=== PATIENT | male | born 1930 | race Caucasian/White ===

== ENCOUNTER 2018-01-17 06:54 | Inpatient (IN) | payer MEDICARE, OTHER ==
[2018-01-17] MEDS: SOD CHLORIDE 0.9% 100 ML, TRANEXAMIC ACID 3,000 MG IRR (06:00)
[2018-01-17] MEDS: TRANEXAMIC ACID 1,000 MG in DEXTROSE 5% 100 ML IVPB (06:00)
[2018-01-17] MEDS: CEFAZOLIN 2 GM/50 ML (PMX) 50 ML IVPB (06:00)
[~2018-01-17 06:54] MED LIST: BUPIVACAINE 0.5% (SDV) 30 ML, morphine SULFATE (PF) 8 MG, EPINEPHrine 0.3 MG, KETOROLAC... IRR
[2018-01-17] MEDS: GABAPENTIN 300 MG CAP PO ×2 (08:07→20:57)
[2018-01-17] MEDS: DEXAMETHASONE 1 MG TAB PO (08:07)
[2018-01-17] MEDS ORDERED: THROMBIN 5000 UNIT VIAL (09:12)
[2018-01-17] MEDS ORDERED: CA CHLORIDE 10% 10 ML SYRINGE (09:12)
[2018-01-17] MEDS ORDERED: CEFAZOLIN 1 GM INJ (09:20)
[2018-01-17] MEDS ORDERED: PROPOFOL 20 ML (09:20)
[2018-01-17] MEDS ORDERED: LIDOCAINE 2% (SDV) 5 ML INJ (09:20)
[2018-01-17] MEDS ORDERED: ONDANSETRON 4 MG INJ (09:21)
[2018-01-17] MEDS ORDERED: BUPIVACAINE 0.75%/DEXT (SPINAL) 2 ML INJ (09:21)
[2018-01-17] MEDS ORDERED: morphine SULFATE/PF (10 MG/10 ML) INJ (09:21)
[2018-01-17] MEDS ORDERED: NALOXONE (0.4 MG/ML) INJ IV (10:30)
[2018-01-17] MEDS ORDERED: ONDANSETRON 4 MG INJ IV ×2 (10:30→11:30)
[2018-01-17] MEDS ORDERED: HYDROmorphONE 0.5 MG/0.5 ML SYG IV ×2 (10:30)
[2018-01-17] MEDS ORDERED: DIPHENHYDRAMINE 50 MG INJ IV (10:30)
[2018-01-17] MEDS: POLYMYXIN/BACITRACIN 1L IRRIG (10:38)
[2018-01-17] MEDS ORDERED: EPHEDrine SULFATE 50 MG/5 ML SYG (10:59)
[2018-01-17] MEDS ORDERED: ACETAMINOPHEN 500 MG TAB PO (11:30)
[2018-01-17] MEDS ORDERED: MAGNESIUM HYDROXIDE 30ML CUP PO (11:30)
[2018-01-17] MEDS ORDERED: morphine 2 MG INJ IV ×2 (11:30)
[2018-01-17] MEDS ORDERED: ZOLPIDEM 5 MG TAB PO (11:30)
[2018-01-17 11:53] LABS: ADD MAN DIFF? NO
[2018-01-17 11:56] LABS: BASOPHILS % 0.3 % (0.0-2.0); EOSINOPHILS % 0.4 % (0.0-7.0); HEMATOCRIT 34.1 % (42.0-52.0); LYMPHOCYTES # 2.1 10^3/ul (0.8-2.9); LYMPHOCYTES % 21.3 % (15.0-51.0); MEAN CORPUSCULAR HEMOGLOBIN 31.6 pg (29.0-33.0); MEAN CORPUSCULAR HGB CONC 32.3 g/dl (32.0-37.0); MEAN PLATELET VOLUME 8.9 fl (7.4-10.4); MONOCYTE # 0.6 10^3/ul (0.3-0.9); MONOCYTES % 6.5 % (0.0-11.0); NEUTROPHIL # 6.9 10^3/ul (1.6-7.5); NEUTROPHILS % 70.3 % (39.0-77.0); PLATELET COUNT 253 10^3/UL (140-415); RED BLOOD COUNT 3.48 10^6/ul (4.70-6.10); RED CELL DISTRIBUTION WIDTH 13.1 % (11.5-14.5)
[2018-01-17 11:56] LABS: WHITE BLOOD COUNT 9.9 10^3/ul (4.8-10.8)
[2018-01-17] MEDS: TRANEXAMIC ACID 1,000 MG in DEXTROSE 5% 100 ML IV (12:18)
[2018-01-17] MEDS ORDERED: morphine LIQ (10 MG/5 ML) CUP PO ×2 (14:30→15:00)
[2018-01-17] MEDS: LACTATED RINGER'S 1,000 ML IV ×2 (15:48→21:30)
[2018-01-17] MEDS: CEFAZOLIN 1 GM/50 ML (PMX) 50 ML IVPB (17:33)
[2018-01-17] MEDS: DEXAMETHASONE 2 MG TAB PO (17:33)
[2018-01-17] MEDS: BUDESONIDE (NEB) 0.5MG/2ML AMP INH (19:53)
[2018-01-17] MEDS: ARFORMOTEROL TARTRATE 15MCG/2 ML AMP INH (20:28)
[2018-01-17] MEDS: FUROSEMIDE 20 MG TAB PO (20:57)
[2018-01-17] MEDS: SENNA/DOCUSATE NA (8.6MG/50MG) TAB PO (20:58)
[2018-01-18] MEDS: DEXAMETHASONE 2 MG TAB PO ×2 (00:07→05:39)
[2018-01-18] MEDS: CEFAZOLIN 1 GM/50 ML (PMX) 50 ML IVPB ×2 (02:04→09:56)
[2018-01-18 05:15] LABS: ADD MAN DIFF? NO
[2018-01-18 05:22] LABS: WHITE BLOOD COUNT 10.3 10^3/ul (4.8-10.8)
[2018-01-18 05:22] LABS: BASOPHILS % 0.1 % (0.0-2.0); HEMATOCRIT 32.6 % (42.0-52.0); HEMOGLOBIN 10.2 g/dl (14.0-18.0); LYMPHOCYTES # 0.8 10^3/ul (0.8-2.9); LYMPHOCYTES % 7.3 % (15.0-51.0); MEAN CORPUSCULAR HGB CONC 31.3 g/dl (32.0-37.0); MEAN CORPUSCULAR VOLUME 99.1 fl (82.0-101.0); MEAN PLATELET VOLUME 9.2 fl (7.4-10.4); MONOCYTE # 0.8 10^3/ul (0.3-0.9); MONOCYTES % 7.6 % (0.0-11.0); NEUTROPHIL # 8.7 10^3/ul (1.6-7.5); NEUTROPHILS % 84.7 % (39.0-77.0); PLATELET COUNT 221 10^3/UL (140-415); RED BLOOD COUNT 3.29 10^6/ul (4.70-6.10); RED CELL DISTRIBUTION WIDTH 13.1 % (11.5-14.5)
[2018-01-18] MEDS: LACTATED RINGER'S 1,000 ML IV ×2 (07:12→17:12)
[2018-01-18] MEDS: METOPROLOL (XL) 50 MG TAB PO ×2 (09:00→09:14)
[2018-01-18] MEDS: TIOTROPIUM 18 MCG CAPSULE INHA DEV INH ×2 (09:00→16:55)
[2018-01-18] MEDS: FUROSEMIDE 20 MG TAB PO ×3 (09:00→20:43)
[2018-01-18] MEDS: ARFORMOTEROL TARTRATE 15MCG/2 ML AMP INH ×2 (09:00→20:47)
[2018-01-18] MEDS: SENNA/DOCUSATE NA (8.6MG/50MG) TAB PO ×2 (09:14→20:42)
[2018-01-18] MEDS: ASPIRIN 81 MG TAB PO (09:15)
[2018-01-18] MEDS: BUDESONIDE (NEB) 0.5MG/2ML AMP INH ×2 (10:01→20:47)
[2018-01-18] MEDS: GABAPENTIN 300 MG CAP PO (20:42)
[2018-01-19] MEDS: LACTATED RINGER'S 1,000 ML IV ×2 (03:12→12:17)
[2018-01-19 05:49] LABS: ADD MAN DIFF? NO
[2018-01-19 05:53] LABS: ABNORMAL IP MESSAGE 1; BASOPHILS % 0.2 % (0.0-2.0); EOSINOPHILS % 0.3 % (0.0-7.0); HEMATOCRIT 30.7 % (42.0-52.0); HEMOGLOBIN 9.7 g/dl (14.0-18.0); LYMPHOCYTES # 1.6 10^3/ul (0.8-2.9); MEAN CORPUSCULAR HGB CONC 31.6 g/dl (32.0-37.0); MEAN CORPUSCULAR VOLUME 98.1 fl (82.0-101.0); MEAN PLATELET VOLUME 9.6 fl (7.4-10.4); MONOCYTE # 1.6 10^3/ul (0.3-0.9); MONOCYTES % 13.5 % (0.0-11.0); NEUTROPHIL # 8.3 10^3/ul (1.6-7.5); NEUTROPHILS % 71.4 % (39.0-77.0); PLATELET COUNT 202 10^3/UL (140-415); POSITIVE DIFF @See below; RED BLOOD COUNT 3.13 10^6/ul (4.70-6.10)
[2018-01-19 05:53] LABS: WHITE BLOOD COUNT 11.6 10^3/ul (4.8-10.8)
[2018-01-19] MEDS: TIOTROPIUM 18 MCG CAPSULE INHA DEV INH (08:39)
[2018-01-19] MEDS: SENNA/DOCUSATE NA (8.6MG/50MG) TAB PO ×2 (08:39→21:45)
[2018-01-19] MEDS: FUROSEMIDE 20 MG TAB PO ×2 (08:40→21:45)
[2018-01-19] MEDS: ASPIRIN 81 MG TAB PO (08:40)
[2018-01-19] MEDS: METOPROLOL (XL) 50 MG TAB PO (08:41)
[2018-01-19] MEDS: KETOROLAC 15 MG INJ IV (10:26)
[2018-01-19] MEDS: ARFORMOTEROL TARTRATE 15MCG/2 ML AMP INH ×2 (10:52→20:52)
[2018-01-19] MEDS: BUDESONIDE (NEB) 0.5MG/2ML AMP INH ×2 (10:53→20:52)
[2018-01-19] MEDS: OXYCODONE/ACETAMINOPHEN (5/325) TAB PO ×2 (11:23→21:48)
[2018-01-19] MEDS: GABAPENTIN 300 MG CAP PO (21:45)
[2018-01-20] MEDS: DIPHENHYDRAMINE 50 MG INJ IV (02:14)
[2018-01-20 05:33] LABS: ADD MAN DIFF? NO
[2018-01-20 05:46] LABS: BASOPHILS % 0.4 % (0.0-2.0); EOSINOPHILS # 0.2 10^3/ul (0.0-0.5); EOSINOPHILS % 1.8 % (0.0-7.0); HEMATOCRIT 30.6 % (42.0-52.0); HEMOGLOBIN 9.7 g/dl (14.0-18.0); LYMPHOCYTES # 2.1 10^3/ul (0.8-2.9); LYMPHOCYTES % 21.4 % (15.0-51.0); MEAN CORPUSCULAR HEMOGLOBIN 31.1 pg (29.0-33.0); MEAN CORPUSCULAR HGB CONC 31.7 g/dl (32.0-37.0); MEAN CORPUSCULAR VOLUME 98.1 fl (82.0-101.0); MEAN PLATELET VOLUME 9.6 fl (7.4-10.4); MONOCYTE # 1.3 10^3/ul (0.3-0.9); MONOCYTES % 13.5 % (0.0-11.0); NEUTROPHIL # 6.1 10^3/ul (1.6-7.5); NEUTROPHILS % 61.9 % (39.0-77.0); PLATELET COUNT 205 10^3/UL (140-415); RED BLOOD COUNT 3.12 10^6/ul (4.70-6.10); RED CELL DISTRIBUTION WIDTH 13.1 % (11.5-14.5)
[2018-01-20 05:46] LABS: WHITE BLOOD COUNT 9.9 10^3/ul (4.8-10.8)
[2018-01-20] MEDS: BUDESONIDE (NEB) 0.5MG/2ML AMP INH ×2 (08:00→19:56)
[2018-01-20] MEDS: ASPIRIN 81 MG TAB PO (08:58)
[2018-01-20] MEDS: SENNA/DOCUSATE NA (8.6MG/50MG) TAB PO ×2 (08:58→20:42)
[2018-01-20] MEDS: FUROSEMIDE 20 MG TAB PO ×2 (08:59→20:42)
[2018-01-20] MEDS: TIOTROPIUM 18 MCG CAPSULE INHA DEV INH (08:59)
[2018-01-20] MEDS: ARFORMOTEROL TARTRATE 15MCG/2 ML AMP INH ×2 (09:00→19:56)
[2018-01-20] MEDS: METOPROLOL (XL) 50 MG TAB PO (09:00)
[2018-01-20] MEDS: OXYCODONE/ACETAMINOPHEN (5/325) TAB PO (18:10)
[2018-01-20] MEDS: GABAPENTIN 300 MG CAP PO (20:42)
[2018-01-21 05:15] LABS: ADD MAN DIFF? NO
[2018-01-21 05:23] LABS: BASOPHILS % 0.3 % (0.0-2.0); EOSINOPHILS # 0.2 10^3/ul (0.0-0.5); EOSINOPHILS % 2.6 % (0.0-7.0); HEMATOCRIT 32.6 % (42.0-52.0); HEMOGLOBIN 10.5 g/dl (14.0-18.0); LYMPHOCYTES # 1.9 10^3/ul (0.8-2.9); LYMPHOCYTES % 21.4 % (15.0-51.0); MEAN CORPUSCULAR HEMOGLOBIN 31.5 pg (29.0-33.0); MEAN CORPUSCULAR HGB CONC 32.2 g/dl (32.0-37.0); MEAN CORPUSCULAR VOLUME 97.9 fl (82.0-101.0); MEAN PLATELET VOLUME 9.3 fl (7.4-10.4); MONOCYTE # 1.1 10^3/ul (0.3-0.9); MONOCYTES % 12.6 % (0.0-11.0); NEUTROPHIL # 5.6 10^3/ul (1.6-7.5); NEUTROPHILS % 62.1 % (39.0-77.0); PLATELET COUNT 228 10^3/UL (140-415); RED BLOOD COUNT 3.33 10^6/ul (4.70-6.10); RED CELL DISTRIBUTION WIDTH 12.7 % (11.5-14.5)
[2018-01-21] MEDS: ARFORMOTEROL TARTRATE 15MCG/2 ML AMP INH (08:22)
[2018-01-21] MEDS: BUDESONIDE (NEB) 0.5MG/2ML AMP INH (08:22)
[2018-01-21] MEDS: METOPROLOL (XL) 50 MG TAB PO (09:00)
[2018-01-21] MEDS: SENNA/DOCUSATE NA (8.6MG/50MG) TAB PO (09:33)
[2018-01-21] MEDS: ASPIRIN 81 MG TAB PO (09:33)
[2018-01-21] MEDS: FUROSEMIDE 20 MG TAB PO (09:35)
[2018-01-21] MEDS: TIOTROPIUM 18 MCG CAPSULE INHA DEV INH (09:35)
== END 2018-01-21 15:40 | DRG 470 ==
LOC: SDS 06:54 → REC 11:14 → MS1 12:56
PROVIDERS: Orthopaedic Surgery
PROC: 0SRB02A Replacement of Left Hip Joint with Metal on Polyethylene Synthetic Substitute, Uncemented, Open Approach (ICD-10-PCS; principal; 2018-01-17 09:25)
DX: M16.12 Unilateral primary osteoarthritis, left hip (principal); I49.5 Sick sinus syndrome; J44.9 Chronic obstructive pulmonary disease, unspecified; Z95.1 Presence of aortocoronary bypass graft; N40.0 Benign prostatic hyperplasia without lower urinary tract symptoms; H35.30 Unspecified macular degeneration; E78.5 Hyperlipidemia, unspecified; Z96.653 Presence of artificial knee joint, bilateral; I25.10 Atherosclerotic heart disease of native coronary artery without angina pectoris; M19.90 Unspecified osteoarthritis, unspecified site; Z95.0 Presence of cardiac pacemaker; Z87.891 Personal history of nicotine dependence; Z79.82 Long term (current) use of aspirin
CPT/HCPCS: 72170; 73530; 85025; 86999; 87086; 88304; 88311; 94640; 94664; 97110; 97116; 97163; 97530

== ENCOUNTER 2018-01-21 15:56 | Inpatient (IN) | payer MEDICARE, OTHER ==
[2018-01-21] MEDS ORDERED: morphine LIQ (10 MG/5 ML) CUP PO ×2 (16:30)
[2018-01-21] MEDS ORDERED: PENDING SANTYL ORDER FOR WOUND CARE XX (16:30)
[2018-01-21] MEDS ORDERED: ONDANSETRON 4 MG TAB PO (16:30)
[2018-01-21] MEDS ORDERED: OXYCODONE/ACETAMINOPHEN (5/325) TAB PO (16:30)
[2018-01-21 17:42] LABS: ADD UMIC NO; UR ASCORBIC ACID NEGATIVE (NEGATIVE); UR BILIRUBIN (Dip) NEGATIVE (NEGATIVE); UR BLOOD (Dip) NEGATIVE (NEGATIVE); UR CLARITY CLEAR (CLEAR); UR COLOR YELLOW (YELLOW); UR GLUCOSE (Dip) NEGATIVE (NEGATIVE); UR KETONES (Dip) NEGATIVE (NEGATIVE); UR LEUKOCYTE ESTERASE (Dip) NEGATIVE Leu/ul (NEGATIVE); UR NITRITE (Dip) NEGATIVE (NEGATIVE); UR SPECIFIC GRAVITY (Dip) 1.011 (1.003-1.030); UR TOTAL PROTEIN (Dip) NEGATIVE (NEGATIVE); UR UROBILINOGEN (Dip) NEGATIVE (NEGATIVE)
[2018-01-21] MEDS: FUROSEMIDE 20 MG TAB PO (18:00)
[2018-01-21] MEDS: ARFORMOTEROL TARTRATE 15MCG/2 ML AMP NEB (20:25)
[2018-01-21] MEDS: BUDESONIDE (NEB) 0.5MG/2ML AMP HHN (20:25)
[2018-01-21] MEDS: GABAPENTIN 300 MG CAP PO (21:35)
[2018-01-21] MEDS: OXYCODONE/ACETAMINOPHEN (5/325) TAB PO (21:35)
[2018-01-21] MEDS: SENNA/DOCUSATE NA (8.6MG/50MG) TAB PO (21:35)
[2018-01-22] MEDS: DIPHENHYDRAMINE 25 MG CAP PO (01:00)
[2018-01-22] MEDS: ZOLPIDEM 5 MG TAB PO ×3 (01:59→23:12)
[2018-01-22] MEDS ORDERED: morphine LIQ (10 MG/5 ML) CUP PO (03:34)
[2018-01-22] MEDS: FUROSEMIDE 20 MG TAB PO (06:35)
[2018-01-22 06:49] LABS: ADD MAN DIFF? NO
[2018-01-22 07:33] LABS: ALANINE AMINOTRANSFERASE 21 IU/L (13-69); ALBUMIN 2.6 g/dl (3.3-4.9); ALBUMIN/GLOBULIN RATIO 0.76; ALKALINE PHOSPHATASE 101 IU/L (42-121); ANION GAP 11 (8-16); ASPARTATE AMINO TRANSFERASE 42 IU/L (15-46); BILIRUBIN,INDIRECT 0.5 mg/dl (0-1.1); BILIRUBIN,TOTAL 0.5 mg/dl (0.2-1.3); BLOOD UREA NITROGEN 25 mg/dl (7-20); CALCIUM 9.4 mg/dl (8.4-10.2); CARBON DIOXIDE 30 mmol/L (21-31); CHLORIDE 105 mmol/L (97-110); CREATININE 0.99 mg/dl (0.61-1.24); GLUCOSE 97 mg/dl (70-220); POTASSIUM 5.5 mmol/L (3.5-5.1); SODIUM 140 mmol/L (135-144)
[2018-01-22] MEDS: BUDESONIDE (NEB) 0.5MG/2ML AMP HHN ×2 (08:00→20:00)
[2018-01-22] MEDS: ASPIRIN 81 MG TAB PO (08:35)
[2018-01-22] MEDS: SENNA/DOCUSATE NA (8.6MG/50MG) TAB PO ×2 (08:35→21:29)
[2018-01-22] MEDS: METOPROLOL (XL) 50 MG TAB PO (08:36)
[2018-01-22] MEDS: TIOTROPIUM 18 MCG CAPSULE INHA DEV INH (08:36)
[2018-01-22] MEDS: ARFORMOTEROL TARTRATE 15MCG/2 ML AMP NEB ×2 (09:00→20:00)
[2018-01-22 09:16] LABS: BASOPHIL # 0.1 10^3/ul (0.0-0.1); BASOPHILS % 0.6 % (0.0-2.0); EOSINOPHILS # 0.3 10^3/ul (0.0-0.5); EOSINOPHILS % 3.1 % (0.0-7.0); HEMOGLOBIN 10.5 g/dl (14.0-18.0); LYMPHOCYTES # 1.7 10^3/ul (0.8-2.9); LYMPHOCYTES % 21.6 % (15.0-51.0); MEAN CORPUSCULAR HGB CONC 31.8 g/dl (32.0-37.0); MEAN CORPUSCULAR VOLUME 97.3 fl (82.0-101.0); MEAN PLATELET VOLUME 9.4 fl (7.4-10.4); MONOCYTES % 12.2 % (0.0-11.0); NEUTROPHIL # 4.9 10^3/ul (1.6-7.5); NEUTROPHILS % 61.1 % (39.0-77.0); PLATELET COUNT 240 10^3/UL (140-415); RED BLOOD COUNT 3.39 10^6/ul (4.70-6.10); RED CELL DISTRIBUTION WIDTH 12.6 % (11.5-14.5)
[2018-01-22] MEDS: ENOXAPARIN 40 MG/0.4 ML SYG SC (11:35)
[2018-01-22] MEDS: NA POLYST SULFON 15 GM/60 ML BTL PO (11:35)
[2018-01-22] MEDS: OXYCODONE/ACETAMINOPHEN (5/325) TAB PO (21:29)
[2018-01-22] MEDS: GABAPENTIN 300 MG CAP PO (21:29)
[2018-01-23] MEDS: FUROSEMIDE 20 MG TAB PO (06:31)
[2018-01-23 07:43] LABS: ANION GAP 8 (8-16); BLOOD UREA NITROGEN 28 mg/dl (7-20); CALCIUM 9.2 mg/dl (8.4-10.2); CARBON DIOXIDE 32 mmol/L (21-31); CHLORIDE 107 mmol/L (97-110); CREATININE 1.11 mg/dl (0.61-1.24); GLUCOSE 96 mg/dl (70-220); MAGNESIUM 2.2 mg/dl (1.7-2.5); POTASSIUM 4.4 mmol/L (3.5-5.1); SODIUM 143 mmol/L (135-144)
[2018-01-23] MEDS: SENNA/DOCUSATE NA (8.6MG/50MG) TAB PO ×2 (08:23→20:49)
[2018-01-23] MEDS: ASPIRIN 81 MG TAB PO (08:23)
[2018-01-23] MEDS: TIOTROPIUM 18 MCG CAPSULE INHA DEV INH (08:24)
[2018-01-23] MEDS: METOPROLOL 25 MG TAB PO (08:24)
[2018-01-23] MEDS: ENOXAPARIN 40 MG/0.4 ML SYG SC (08:28)
[2018-01-23] MEDS: BUDESONIDE (NEB) 0.5MG/2ML AMP HHN ×2 (08:40→19:13)
[2018-01-23] MEDS: ARFORMOTEROL TARTRATE 15MCG/2 ML AMP NEB ×2 (08:50→19:13)
[2018-01-23] MEDS ORDERED: HYDROCORTISONE 1% 28 GM CR TOP (12:30)
[2018-01-23] MEDS: GABAPENTIN 300 MG CAP PO (20:45)
[2018-01-23] MEDS: ALPRAZOLAM 0.25 MG TAB PO (20:45)
[2018-01-23] MEDS: OXYCODONE/ACETAMINOPHEN (5/325) TAB PO (20:46)
[2018-01-24] MEDS: traZODone 50 MG TAB PO ×2 (00:42→20:48)
[2018-01-24] MEDS: FUROSEMIDE 20 MG TAB PO (06:18)
[2018-01-24] MEDS: OXYCODONE/ACETAMINOPHEN (5/325) TAB PO ×3 (07:16→20:49)
[2018-01-24] MEDS: BUDESONIDE (NEB) 0.5MG/2ML AMP HHN ×2 (08:00→21:16)
[2018-01-24] MEDS: ENOXAPARIN 40 MG/0.4 ML SYG SC (08:26)
[2018-01-24] MEDS: TIOTROPIUM 18 MCG CAPSULE INHA DEV INH (08:27)
[2018-01-24] MEDS: ASPIRIN 81 MG TAB PO (08:27)
[2018-01-24] MEDS: METOPROLOL 25 MG TAB PO (08:27)
[2018-01-24] MEDS: SENNA/DOCUSATE NA (8.6MG/50MG) TAB PO ×2 (08:27→20:48)
[2018-01-24] MEDS: ARFORMOTEROL TARTRATE 15MCG/2 ML AMP NEB ×2 (09:00→20:00)
[2018-01-24] MEDS: GABAPENTIN 300 MG CAP PO (20:48)
[2018-01-24] MEDS: DIPHENHYDRAMINE 25 MG CAP PO (20:48)
[2018-01-25] MEDS: METOPROLOL 25 MG TAB PO (09:00)
[2018-01-25] MEDS: BUDESONIDE (NEB) 0.5MG/2ML AMP HHN ×2 (09:15→20:20)
[2018-01-25] MEDS: ARFORMOTEROL TARTRATE 15MCG/2 ML AMP NEB ×2 (09:15→20:20)
[2018-01-25] MEDS: SENNA/DOCUSATE NA (8.6MG/50MG) TAB PO ×2 (09:52→20:46)
[2018-01-25] MEDS: ASPIRIN 81 MG TAB PO (09:52)
[2018-01-25] MEDS: TIOTROPIUM 18 MCG CAPSULE INHA DEV INH (09:53)
[2018-01-25] MEDS: ENOXAPARIN 40 MG/0.4 ML SYG SC (09:59)
[2018-01-25 13:29] LABS: ADD MAN DIFF? NO
[2018-01-25 13:31] LABS: BASOPHILS % 0.3 % (0.0-2.0); EOSINOPHILS # 0.4 10^3/ul (0.0-0.5); EOSINOPHILS % 4.4 % (0.0-7.0); HEMATOCRIT 33.6 % (42.0-52.0); HEMOGLOBIN 10.9 g/dl (14.0-18.0); LYMPHOCYTES # 1.7 10^3/ul (0.8-2.9); LYMPHOCYTES % 18.8 % (15.0-51.0); MEAN CORPUSCULAR HEMOGLOBIN 31.5 pg (29.0-33.0); MEAN CORPUSCULAR HGB CONC 32.4 g/dl (32.0-37.0); MEAN CORPUSCULAR VOLUME 97.1 fl (82.0-101.0); MEAN PLATELET VOLUME 8.8 fl (7.4-10.4); MONOCYTES % 11.4 % (0.0-11.0); NEUTROPHIL # 5.7 10^3/ul (1.6-7.5); PLATELET COUNT 259 10^3/UL (140-415); RED BLOOD COUNT 3.46 10^6/ul (4.70-6.10); RED CELL DISTRIBUTION WIDTH 12.7 % (11.5-14.5)
[2018-01-25 13:47] LABS: ANION GAP 10 (8-16); BLOOD UREA NITROGEN 23 mg/dl (7-20); CALCIUM 9.1 mg/dl (8.4-10.2); CARBON DIOXIDE 30 mmol/L (21-31); CHLORIDE 105 mmol/L (97-110); CREATININE 0.97 mg/dl (0.61-1.24); GLUCOSE 110 mg/dl (70-220); POTASSIUM 4.5 mmol/L (3.5-5.1); SODIUM 140 mmol/L (135-144)
[2018-01-25] MEDS: ACETAMINOPHEN 500 MG TAB PO (16:18)
[2018-01-25] MEDS: GABAPENTIN 300 MG CAP PO (20:46)
[2018-01-25] MEDS: DIPHENHYDRAMINE 25 MG CAP PO (20:46)
[2018-01-25] MEDS: traZODone 50 MG TAB PO (20:46)
[2018-01-26] MEDS: TIOTROPIUM 18 MCG CAPSULE INHA DEV INH (08:22)
[2018-01-26] MEDS: ASPIRIN 81 MG TAB PO (08:22)
[2018-01-26] MEDS: SENNA/DOCUSATE NA (8.6MG/50MG) TAB PO ×2 (08:22→20:57)
[2018-01-26] MEDS: ENOXAPARIN 40 MG/0.4 ML SYG SC (08:23)
[2018-01-26] MEDS: METOPROLOL 25 MG TAB PO (08:25)
[2018-01-26] MEDS: ARFORMOTEROL TARTRATE 15MCG/2 ML AMP NEB ×2 (09:00→20:00)
[2018-01-26] MEDS: BUDESONIDE (NEB) 0.5MG/2ML AMP HHN ×2 (09:26→20:10)
[2018-01-26] MEDS: GABAPENTIN 400 MG CAP PO (20:54)
[2018-01-26] MEDS: traZODone 50 MG TAB PO (20:55)
[2018-01-27] MEDS: ARFORMOTEROL TARTRATE 15MCG/2 ML AMP NEB ×2 (08:28→20:15)
[2018-01-27] MEDS: BUDESONIDE (NEB) 0.5MG/2ML AMP HHN ×2 (08:28→20:15)
[2018-01-27] MEDS: ASPIRIN 81 MG TAB PO (09:09)
[2018-01-27] MEDS: SENNA/DOCUSATE NA (8.6MG/50MG) TAB PO ×2 (09:10→20:30)
[2018-01-27] MEDS: METOPROLOL 25 MG TAB PO (09:10)
[2018-01-27] MEDS: ENOXAPARIN 40 MG/0.4 ML SYG SC (09:12)
[2018-01-27] MEDS: TIOTROPIUM 18 MCG CAPSULE INHA DEV INH (09:36)
[2018-01-27] MEDS: traZODone 50 MG TAB PO (20:30)
[2018-01-27] MEDS: GABAPENTIN 400 MG CAP PO (20:30)
[2018-01-27] MEDS: TAMSULOSIN (SR) 0.4 MG CAP PO (20:30)
[2018-01-28] MEDS: BUDESONIDE (NEB) 0.5MG/2ML AMP HHN ×2 (08:16→20:35)
[2018-01-28] MEDS: ARFORMOTEROL TARTRATE 15MCG/2 ML AMP NEB ×2 (08:16→20:00)
[2018-01-28] MEDS: ASPIRIN 81 MG TAB PO (09:00)
[2018-01-28] MEDS: ENOXAPARIN 40 MG/0.4 ML SYG SC (10:10)
[2018-01-28] MEDS: SENNA/DOCUSATE NA (8.6MG/50MG) TAB PO ×2 (10:13→20:46)
[2018-01-28] MEDS: TIOTROPIUM 18 MCG CAPSULE INHA DEV INH (10:13)
[2018-01-28] MEDS: METOPROLOL 25 MG TAB PO (10:20)
[2018-01-28] MEDS: ACETAMINOPHEN 500 MG TAB PO (13:29)
[2018-01-28] MEDS: OXYCODONE/ACETAMINOPHEN (5/325) TAB PO (15:17)
[2018-01-28] MEDS: GABAPENTIN 400 MG CAP PO (20:46)
[2018-01-28] MEDS: traZODone 50 MG TAB PO (20:46)
[2018-01-29] MEDS: SENNA/DOCUSATE NA (8.6MG/50MG) TAB PO ×2 (08:22→21:11)
[2018-01-29] MEDS: ENOXAPARIN 40 MG/0.4 ML SYG SC (08:22)
[2018-01-29] MEDS: ASPIRIN 81 MG TAB PO (08:22)
[2018-01-29] MEDS: METOPROLOL 25 MG TAB PO (08:23)
[2018-01-29] MEDS: TIOTROPIUM 18 MCG CAPSULE INHA DEV INH ×2 (09:00→14:00)
[2018-01-29] MEDS: ARFORMOTEROL TARTRATE 15MCG/2 ML AMP NEB ×2 (09:00→20:57)
[2018-01-29] MEDS: BUDESONIDE (NEB) 0.5MG/2ML AMP HHN ×2 (09:00→20:57)
[2018-01-29] MEDS: GABAPENTIN 400 MG CAP PO (21:11)
[2018-01-29] MEDS: traZODone 50 MG TAB PO (21:11)
[2018-01-30] MEDS: BUDESONIDE (NEB) 0.5MG/2ML AMP HHN ×2 (08:00→19:56)
[2018-01-30] MEDS: ARFORMOTEROL TARTRATE 15MCG/2 ML AMP NEB ×2 (09:00→20:04)
[2018-01-30] MEDS: ENOXAPARIN 40 MG/0.4 ML SYG SC (09:00)
[2018-01-30] MEDS: METOPROLOL 25 MG TAB PO (09:35)
[2018-01-30] MEDS: OXYCODONE/ACETAMINOPHEN (5/325) TAB PO (09:35)
[2018-01-30] MEDS: TIOTROPIUM 18 MCG CAPSULE INHA DEV INH (09:36)
[2018-01-30] MEDS: ASPIRIN 81 MG TAB PO (09:36)
[2018-01-30] MEDS: SENNA/DOCUSATE NA (8.6MG/50MG) TAB PO ×2 (09:36→21:09)
[2018-01-30] MEDS: GABAPENTIN 400 MG CAP PO (21:09)
[2018-01-30] MEDS: traZODone 50 MG TAB PO (21:09)
[2018-01-31] MEDS: BUDESONIDE (NEB) 0.5MG/2ML AMP HHN ×2 (08:03→19:19)
[2018-01-31] MEDS: ARFORMOTEROL TARTRATE 15MCG/2 ML AMP NEB ×2 (08:03→19:19)
[2018-01-31] MEDS: METOPROLOL 25 MG TAB PO (09:00)
[2018-01-31] MEDS: ENOXAPARIN 40 MG/0.4 ML SYG SC (09:00)
[2018-01-31] MEDS: TIOTROPIUM 18 MCG CAPSULE INHA DEV INH (09:26)
[2018-01-31] MEDS: ASPIRIN 81 MG TAB PO (09:26)
[2018-01-31] MEDS: SENNA/DOCUSATE NA (8.6MG/50MG) TAB PO ×2 (09:27→20:23)
[2018-01-31] MEDS: OXYCODONE/ACETAMINOPHEN (5/325) TAB PO (09:28)
[2018-01-31] MEDS: traZODone 50 MG TAB PO (20:23)
[2018-01-31] MEDS: MAGNESIUM HYDROXIDE 30ML CUP PO (20:23)
[2018-01-31] MEDS: GABAPENTIN 400 MG CAP PO (20:23)
[2018-02-01] MEDS: ARFORMOTEROL TARTRATE 15MCG/2 ML AMP NEB ×2 (07:40→21:00)
[2018-02-01] MEDS: BUDESONIDE (NEB) 0.5MG/2ML AMP HHN ×2 (07:40→20:17)
[2018-02-01] MEDS: ASPIRIN 81 MG TAB PO (09:04)
[2018-02-01] MEDS: METOPROLOL 25 MG TAB PO (09:05)
[2018-02-01] MEDS: SENNA/DOCUSATE NA (8.6MG/50MG) TAB PO ×2 (09:05→20:56)
[2018-02-01] MEDS: ENOXAPARIN 40 MG/0.4 ML SYG SC (09:06)
[2018-02-01] MEDS: TIOTROPIUM 18 MCG CAPSULE INHA DEV INH (09:12)
[2018-02-01] MEDS: LACTULOSE 30ML CUP PO (12:31)
[2018-02-01] MEDS: GABAPENTIN 400 MG CAP PO (20:52)
[2018-02-01] MEDS: traZODone 50 MG TAB PO (20:53)
[2018-02-02] MEDS: TIOTROPIUM 18 MCG CAPSULE INHA DEV INH (08:58)
[2018-02-02] MEDS: SENNA/DOCUSATE NA (8.6MG/50MG) TAB PO ×2 (08:58→21:06)
[2018-02-02] MEDS: ASPIRIN 81 MG TAB PO (08:58)
[2018-02-02] MEDS: ENOXAPARIN 40 MG/0.4 ML SYG SC (08:59)
[2018-02-02] MEDS: METOPROLOL 25 MG TAB PO (08:59)
[2018-02-02] MEDS: ARFORMOTEROL TARTRATE 15MCG/2 ML AMP NEB ×2 (09:15→20:31)
[2018-02-02] MEDS: BUDESONIDE (NEB) 0.5MG/2ML AMP HHN ×2 (09:16→20:31)
[2018-02-02] MEDS: FINASTERIDE 5 MG TAB PO (11:30)
[2018-02-02] MEDS: GABAPENTIN 400 MG CAP PO (21:06)
[2018-02-02] MEDS: traZODone 50 MG TAB PO (21:06)
[2018-02-03] MEDS: FINASTERIDE 5 MG TAB PO (08:39)
[2018-02-03] MEDS: SENNA/DOCUSATE NA (8.6MG/50MG) TAB PO ×2 (08:39→20:38)
[2018-02-03] MEDS: TIOTROPIUM 18 MCG CAPSULE INHA DEV INH (08:39)
[2018-02-03] MEDS: METOPROLOL 25 MG TAB PO (08:41)
[2018-02-03] MEDS: ASPIRIN 81 MG TAB PO (08:41)
[2018-02-03] MEDS: ENOXAPARIN 40 MG/0.4 ML SYG SC (08:43)
[2018-02-03] MEDS: ARFORMOTEROL TARTRATE 15MCG/2 ML AMP NEB ×2 (10:00→19:49)
[2018-02-03] MEDS: BUDESONIDE (NEB) 0.5MG/2ML AMP HHN ×2 (10:00→19:49)
[2018-02-03] MEDS: GABAPENTIN 400 MG CAP PO (20:38)
[2018-02-03] MEDS: traZODone 50 MG TAB PO (20:38)
[2018-02-04] MEDS: ARFORMOTEROL TARTRATE 15MCG/2 ML AMP NEB ×2 (09:25→19:40)
[2018-02-04] MEDS: BUDESONIDE (NEB) 0.5MG/2ML AMP HHN ×2 (09:27→19:40)
[2018-02-04] MEDS: FINASTERIDE 5 MG TAB PO (09:29)
[2018-02-04] MEDS: SENNA/DOCUSATE NA (8.6MG/50MG) TAB PO ×2 (09:30→20:57)
[2018-02-04] MEDS: ASPIRIN 81 MG TAB PO (09:30)
[2018-02-04] MEDS: METOPROLOL 25 MG TAB PO (09:31)
[2018-02-04] MEDS: ENOXAPARIN 40 MG/0.4 ML SYG SC (09:41)
[2018-02-04] MEDS: TIOTROPIUM 18 MCG CAPSULE INHA DEV INH (10:00)
[2018-02-04] MEDS: OXYCODONE/ACETAMINOPHEN (5/325) TAB PO ×2 (10:05→19:06)
[2018-02-04] MEDS: traZODone 50 MG TAB PO (20:57)
[2018-02-04] MEDS: GABAPENTIN 400 MG CAP PO (20:57)
[2018-02-05] MEDS: BUDESONIDE (NEB) 0.5MG/2ML AMP HHN ×2 (09:00→20:28)
[2018-02-05] MEDS: ARFORMOTEROL TARTRATE 15MCG/2 ML AMP NEB ×2 (09:22→20:28)
[2018-02-05] MEDS: FINASTERIDE 5 MG TAB PO (10:20)
[2018-02-05] MEDS: TIOTROPIUM 18 MCG CAPSULE INHA DEV INH (10:20)
[2018-02-05] MEDS: OXYCODONE/ACETAMINOPHEN (5/325) TAB PO ×2 (10:20→18:32)
[2018-02-05] MEDS: METOPROLOL 25 MG TAB PO (10:22)
[2018-02-05] MEDS: ASPIRIN 81 MG TAB PO (10:24)
[2018-02-05] MEDS: SENNA/DOCUSATE NA (8.6MG/50MG) TAB PO ×2 (10:24→20:57)
[2018-02-05] MEDS: ENOXAPARIN 40 MG/0.4 ML SYG SC (10:27)
[2018-02-05] MEDS: GABAPENTIN 400 MG CAP PO (20:57)
[2018-02-05] MEDS: traZODone 50 MG TAB PO (20:57)
[2018-02-06] MEDS: TIOTROPIUM 18 MCG CAPSULE INHA DEV INH (08:50)
[2018-02-06] MEDS: SENNA/DOCUSATE NA (8.6MG/50MG) TAB PO (08:51)
[2018-02-06] MEDS: FINASTERIDE 5 MG TAB PO (08:51)
[2018-02-06] MEDS: ASPIRIN 81 MG TAB PO (08:51)
[2018-02-06] MEDS: OXYCODONE/ACETAMINOPHEN (5/325) TAB PO ×2 (08:51→12:29)
[2018-02-06] MEDS: METOPROLOL 25 MG TAB PO (08:52)
[2018-02-06] MEDS: ENOXAPARIN 40 MG/0.4 ML SYG SC (08:55)
[2018-02-06] MEDS: ARFORMOTEROL TARTRATE 15MCG/2 ML AMP NEB (09:00)
[2018-02-06] MEDS: BUDESONIDE (NEB) 0.5MG/2ML AMP HHN (09:00)
== END 2018-02-06 13:59 | disposition home health service (06) | DRG 561 ==
LOC: VRC 15:56
PROC: F07Z5ZZ Bed Mobility Treatment (ICD-10-PCS; principal; 2018-01-21)
PROC: F08Z2ZZ Grooming/Personal Hygiene Treatment (ICD-10-PCS; 2018-01-21)
DX: Z47.1 Aftercare following joint replacement surgery (principal); Z96.642 Presence of left artificial hip joint; I49.5 Sick sinus syndrome; Z95.0 Presence of cardiac pacemaker; I95.1 Orthostatic hypotension; E87.5 Hyperkalemia; G47.9 Sleep disorder, unspecified; Z96.653 Presence of artificial knee joint, bilateral; J44.9 Chronic obstructive pulmonary disease, unspecified; G89.18 Other acute postprocedural pain; I25.10 Atherosclerotic heart disease of native coronary artery without angina pectoris; Z95.1 Presence of aortocoronary bypass graft; N40.0 Benign prostatic hyperplasia without lower urinary tract symptoms; S39.82XA Other specified injuries of lower back, initial encounter; Z79.82 Long term (current) use of aspirin
CPT/HCPCS: 71045; 80048; 80053; 81003; 83735; 85025; 87081; 87086; 93005; 93306; 94640; 94664; 97110; 97112; 97116; 97163; 97166; 97530; 97535; 97542

== ENCOUNTER 2018-06-02 15:49 | Emergency (ER) | payer MEDICARE, OTHER ==
[2018-06-02 17:03] LABS: ADD MAN DIFF? NO
[2018-06-02 17:16] LABS: BASOPHILS % 0.4 % (0.0-2.0); EOSINOPHILS # 0.3 10^3/ul (0.0-0.5); HEMATOCRIT 37.4 % (42.0-52.0); HEMOGLOBIN 12.1 g/dl (14.0-18.0); LYMPHOCYTES # 2.2 10^3/ul (0.8-2.9); LYMPHOCYTES % 28.1 % (15.0-51.0); MEAN CORPUSCULAR HGB CONC 32.4 g/dl (32.0-37.0); MEAN CORPUSCULAR VOLUME 92.8 fl (82.0-101.0); MEAN PLATELET VOLUME 9.2 fl (7.4-10.4); MONOCYTES % 12.7 % (0.0-11.0); NEUTROPHIL # 4.2 10^3/ul (1.6-7.5); NEUTROPHILS % 54.4 % (39.0-77.0); PLATELET COUNT 200 10^3/UL (140-415); RED BLOOD COUNT 4.03 10^6/ul (4.70-6.10); RED CELL DISTRIBUTION WIDTH 13.2 % (11.5-14.5)
[2018-06-02 17:16] LABS: WHITE BLOOD COUNT 7.7 10^3/ul (4.8-10.8)
[2018-06-02 17:30] LABS: INR 1.01; PARTIAL THROMBOPLASTIN TIME 27.1 Sec (23.0-35.0); PROTIME 13.4 Sec (11.9-14.9)
[2018-06-02 17:33] LABS: ALANINE AMINOTRANSFERASE 13 IU/L (13-69); ALBUMIN 2.8 g/dl (3.3-4.9); ALBUMIN/GLOBULIN RATIO 0.87; ALKALINE PHOSPHATASE 99 IU/L (42-121); ANION GAP 9 (8-16); ASPARTATE AMINO TRANSFERASE 21 IU/L (15-46); BILIRUBIN,INDIRECT 0.2 mg/dl (0-1.1); BILIRUBIN,TOTAL 0.2 mg/dl (0.2-1.3); BLOOD UREA NITROGEN 35 mg/dl (7-20); CALCIUM 9.4 mg/dl (8.4-10.2); CARBON DIOXIDE 28 mmol/L (21-31); CHLORIDE 109 mmol/L (97-110); CREATININE 1.57 mg/dl (0.61-1.24); GLUCOSE 90 mg/dl (70-220); POTASSIUM 4.2 mmol/L (3.5-5.1); SODIUM 142 mmol/L (135-144)
[2018-06-02 17:50] LABS: T3 UPTAKE 35.5 % (23.5-40.5); T4 (THYROXINE) 6.2 ug/dl (5.5-11.0)
== END 2018-06-02 18:25 | disposition home or self-care (01) ==
LOC: E/R 15:49
DX: S40.021A Contusion of right upper arm, initial encounter (principal); J44.9 Chronic obstructive pulmonary disease, unspecified; I10 Essential (primary) hypertension; W18.39XA Other fall on same level, initial encounter; Y92.9 Unspecified place or not applicable; Z79.82 Long term (current) use of aspirin; Z87.891 Personal history of nicotine dependence; Z95.0 Presence of cardiac pacemaker; Z95.1 Presence of aortocoronary bypass graft
CPT/HCPCS: 36415; 73060-RT; 80053; 84436; 84479; 85025; 85610; 85730; 99284-25